=== PATIENT | female | born 1990 | race Two or more races ===

== ENCOUNTER 2023-09-10 11:20 | Emergency (ER) | payer MEDICAID, OTHER ==
[~2023-09-10] VITALS: Ht 170.2 cm; Wt 107.7 kg
[2023-09-10 14:24] VITALS: BP 130/73; PULSE 100; RESP 17; TEMP 98; O2SAT 95
[2023-09-10] MEDS: DexAMETHasone SOD PHOS 10MG/1ML VIAL INJ IM ONE (14:35)
[2023-09-10] MEDS: diphenhdrAMINE HCL 50 MG/1 ML VL IM ONE (14:35)
[2023-09-10] MEDS ORDERED: DIPH25CA66 PO (15:12)
[2023-09-10] MEDS ORDERED: PRED20TA2 PO (15:12)
== END 2023-09-10 15:19 | disposition home or self-care (01) ==
LOC: ER 11:20 → EDBD 11:20 → ER 15:19
DX: K74.60 Unspecified cirrhosis of liver (principal); R21 Rash and other nonspecific skin eruption
CPT/HCPCS: 96372; 99283; J1100